=== PATIENT | female | born 1960 | race Caucasian/White ===

== ENCOUNTER 2017-03-19 15:18 | Emergency (ER) | payer MEDICARE, OTHER ==
[~2017-03-19] VITALS: Ht 160 cm; Wt 74.8 kg
--- NOTE | 2017-03-19 16:41 | RADIOLOGY REPORT PS360 ---
WRIST-3 VIEWS-RT HISTORY: Pain following injury. Pain and swelling DOG BITE ORDERING PHYSICIAN: Naman Brown MD PATIENT AGE: 56 years COMPARISON: None FINDINGS: No fracture or dislocation. No lytic or blastic change. There is normal mineralization.. The joint spaces are well-preserved. No significant degenerative/arthritic changes. No erosive changes evident.. No radio opaque foreign body. There is a small amount soft tissue gas along the distal forearm and wrist anteriorly and posteriorly. Soft tissue swelling also noted. IMPRESSION: 1. Soft tissue swelling with soft tissue gas. 2. No fracture or radiopaque foreign body
--- NOTE | 2017-03-19 16:42 | RADIOLOGY REPORT PS360 ---
FOREARM-RT HISTORY: Pain and swelling, laceration DOG BITE ORDERING PHYSICIAN: Naman Brown MD PATIENT AGE: 56 years COMPARISON: None FINDINGS: No obvious fracture, dislocation, lytic change or blastic change. Normal mineralization. Unremarkable soft tissues. There is laceration of the dorsal aspect of the wrist with a small amount soft tissue gas both anteriorly and posteriorly. No radio opaque foreign body. IMPRESSION: 1. Dorsal distal forearm laceration with soft tissue gas. 2. No fracture or radiopaque foreign body
[2017-03-19] MEDS ORDERED: CLINDAMYCIN HC300 MG PO (17:19)
[2017-03-19] MEDS ORDERED: AUGMENTIN 875-1 EACH PO (17:19)
--- NOTE | 2017-03-19 17:20 | Emergency Room Report ---
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 N Clinical Suspician of Infection? N Mental Status: 1 - Regular (Normal Baseline) Sepsis Risk:Low Sepsis Risk Have you (or family members/close friends) recently traveled outside the [place]? N If Yes, where/when: Have you had exposure to infectious disease within the past month? TB? Other? 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 Patient advised that she tried to break up a fight between 2 bull dogs and one of them bit her on the RIGHT wrist and RIGHT forearm. Patient denies any other injuries at this time. ALLERGIES Coded Allergies: codeine (Mild, 03/19/17) History Medical History General CAD? No Angina: No Hypertension? No Hyperlipidemia? Yes CHF? No DVT? No PE? No COPD? No Asthma? No Anemia? No GERD? Yes Gastric ulcers? No GI Bleed? No Hernia? Yes Thyroid Problems? No Hypothyroidism? No CVA? No Seizures? No Diabetes? No Renal Insuffiency? No End Stage Renal Disease? No UTI? No Hepatitis? No Sickle Cell Disease? No Arthritis? Yes Migraines? Yes Cataracts? No Glaucoma? No MRSA? No HIV? No TB? No Anxiety? No Depression? No Cancer? Yes Site: MELANOMA More? Yes Additional hx: BENIGN RENAL KIDNEY MASS-LEFT Immunization Hx Ped.Immunizations UTD Yes DT/Tetanus Unknown Surgical Hx Previous Surgery?Y C4,5,6,7 VERTEBRAES LT. 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 Social History Smoking Hx Smoker: Former Smoker Tobacco: No Type N/A Are you/the child exposed to second-hand smoke: No Review of Systems All Other Systems Reviewed and Negative Musculoskeletal see HPI, joint pain (RIGHT forearm, RIGHT wrist) Skin lesions (RIGHT forearm, RIGHT wrist) Physical Exam Vital Signs Vital Signs Date Time Temp Pulse Resp B/P Pulse O2 O2 Flow FiO2 Ox Delivery Rate 03/19 1825 98.3 66 18 130/80 99 03/19 1647 66 18 130/80 99 03/19 1530 98.3 66 18 138/74 98 General Appearance normal appearance, WD/WN, moderate distress, very anxious Respiratory Status Yes: trachea midline, chest symmetrical, non tender chest. No: respiratory distress. Lung Sounds bilateral: normal breath sounds, lungs clear. Cardiovascular normal exam, regular rate/rhythm, no peripheral edema, no gallop, no JVD, no murmur, no rub, normal peripheral pulses Gastrointestinal normal bowel sounds, normal exam, non tender, soft, no organomegaly Extremities normal range of motion, the patient has 3 posterior distal RIGHT forearm lacerations, 1st - 6cm 2nd - 4cm 3rd - 3cm and other 3 on the volar aspect of the right forearm, 4th - 3cm 5th - 2cm 6th - 2cm all subcutaneous, no FB seen. Wounds washed off vigurously with 1,000ml of saline. 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 Yes Brent was queried for this patient? No Reason not queried - hospital network issues Risks/benefits of using a controlled substance for treatment were discussed w/pt by me Comment Patient tolerated procedure well, plan is have her follow-up with PCP within 2 days. In the meanwhile she will change her dressing daily, keep wounds clean and dry, watch carefully for signs of possible local infection. I have applied a splint for patient's comfort in order to avoid additional pain. I have discussed with patient the possibility of a secondary infection at length. Patient understands that this is a likelihood, advised to watch carefully for signs of possible infection and to return promptly here for reevaluation. Results/Orders Laboratory Tests 03/19/17 1545: POC Glucose 110 Current Medication Orders Sig/Irais Start time Last Medication Dose Route Stop Time Status Admin Lidocaine HCl 0 .STK-MED ONE 03/19 1716 DC .ROUTE Orders Procedure Date/time Status FINGERSTICK BLOOD SUGAR 03/19 1545 Complete Procedures Laceration/Wound Repair Laceration/Wound Repair Risks/benefits discussed with pt/guardian? Yes Tetanus status up to date Wound Location right forearm Wound Length (cm) 20 Wound's Depth, Shape sucutaneous tissue Wound Explored no FB identified Risk of retained FB explained to pt/guardian? Yes Irrigated w/ Saline (ccs) 1000 (ml of saline) Wound Prep Betadine, Saline Anesthesia 1% Lidocaine, Local Volume Anesthetic (ccs) 40 Wound Debrided none Wound Repaired With sutures Suture Size/Type 5:0, Ethilon Total Number Sutures 35 Sterile Dressing Applied Yes Splint Applied Yes Type of Splint Applied short arm, volar, orthoglass (see note) Orthopedic/Inj/Splint Ortho Proc/Injections/Splints Risks/benefits discussed with pt/guardian? Yes Location right forearm Hand-Made Type orthoglass Splint volar Pre-Proc Neuro Vasc Exam normal Post-Proc Neuro Vasc Exam normal Complications no immediate complications Departure Departure Time of Disposition 1718 Disposition DC Home or Self Care(routine) Clinical Impression Primary Impression: Dog bite of right forearm without complication Qualifiers: Encounter type: initial encounter Qualified Code: S51.851A - Open bite of right forearm, initial encounter Condition STABLE Referrals Kat MARTINEZ,Arnav Rubin: 2 Days-Call Office if not better Patient Instructions DI for Dog Bite Additional Instructions Please keep wound clean and dry, change dressing daily, watch carefully for signs of possible local infection, follow-up with PCP (of your choice) or return to the ER if any worse. Please take the 2 antibiotics as instructed, prescriptions the past. Suture removal in 8-10 days if no complications. Discharge Counseling Counseled pt/family regarding diagnosis, test results, medications/RX, home care, follow up needs Comment Please keep wound clean and dry, change dressing daily, watch carefully for signs of possible local infection, follow-up with PCP (of your choice) or return to the ER if any worse. Please take the 2 antibiotics as instructed, prescriptions the past. Suture removal in 8-10 days if no complications. Prescriptions Current Visit Scripts Amoxicillin/Potassium Clav (Augmentin 875-125 Tablet) 1 EACH PO BID #20 TAB Clindamycin Hcl (Clindamycin 300MG) 300 MG PO QID #28 CAP Tramadol Hcl (Ultram 50MG) 50 MG PO QIDP PRN pain #12 TAB ED Critical Care Critical Care No at 1700
--- NOTE | 2017-03-19 17:20 | Emergency Room Report ---
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 N Clinical Suspician of Infection? N Mental Status: 1 - Regular (Normal Baseline) Sepsis Risk:Low Sepsis Risk Have you (or family members/close friends) recently traveled outside the [place]? N If Yes, where/when: Have you had exposure to infectious disease within the past month? TB? Other? 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 Patient advised that she tried to break up a fight between 2 bull dogs and one of them bit her on the RIGHT wrist and RIGHT forearm. Patient denies any other injuries at this time. ALLERGIES Coded Allergies: codeine (Mild, 03/19/17) History Medical History General CAD? No Angina: No Hypertension? No Hyperlipidemia? Yes CHF? No DVT? No PE? No COPD? No Asthma? No Anemia? No GERD? Yes Gastric ulcers? No GI Bleed? No Hernia? Yes Thyroid Problems? No Hypothyroidism? No CVA? No Seizures? No Diabetes? No Renal Insuffiency? No End Stage Renal Disease? No UTI? No Hepatitis? No Sickle Cell Disease? No Arthritis? Yes Migraines? Yes Cataracts? No Glaucoma? No MRSA? No HIV? No TB? No Anxiety? No Depression? No Cancer? Yes Site: MELANOMA More? Yes Additional hx: BENIGN RENAL KIDNEY MASS-LEFT Immunization Hx Ped.Immunizations UTD Yes DT/Tetanus Unknown Surgical Hx Previous Surgery?Y C4,5,6,7 VERTEBRAES LT. 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 Social History Smoking Hx Smoker: Former Smoker Tobacco: No Type N/A Are you/the child exposed to second-hand smoke: No Review of Systems All Other Systems Reviewed and Negative Musculoskeletal see HPI, joint pain (RIGHT forearm, RIGHT wrist) Skin lesions (RIGHT forearm, RIGHT wrist) Physical Exam Vital Signs Vital Signs Date Time Temp Pulse Resp B/P Pulse O2 O2 Flow FiO2 Ox Delivery Rate 03/19 1825 98.3 66 18 130/80 99 03/19 1647 66 18 130/80 99 03/19 1530 98.3 66 18 138/74 98 General Appearance normal appearance, WD/WN, moderate distress, very anxious Respiratory Status Yes: trachea midline, chest symmetrical, non tender chest. No: respiratory distress. Lung Sounds bilateral: normal breath sounds, lungs clear. Cardiovascular normal exam, regular rate/rhythm, no peripheral edema, no gallop, no JVD, no murmur, no rub, normal peripheral pulses Gastrointestinal normal bowel sounds, normal exam, non tender, soft, no organomegaly Extremities normal range of motion, the patient has 3 posterior distal RIGHT forearm lacerations, 1st - 6cm 2nd - 4cm 3rd - 3cm and other 3 on the volar aspect of the right forearm, 4th - 3cm 5th - 2cm 6th - 2cm all subcutaneous, no FB seen. Wounds washed off vigurously with 1,000ml of saline. 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 Yes Brent was queried for this patient? No Reason not queried - hospital network issues Risks/benefits of using a controlled substance for treatment were discussed w/pt by me Comment Patient tolerated procedure well, plan is have her follow-up with PCP within 2 days. In the meanwhile she will change her dressing daily, keep wounds clean and dry, watch carefully for signs of possible local infection. I have applied a splint for patient's comfort in order to avoid additional pain. I have discussed with patient the possibility of a secondary infection at length. Patient understands that this is a likelihood, advised to watch carefully for signs of possible infection and to return promptly here for reevaluation. Results/Orders Laboratory Tests 03/19/17 1545: POC Glucose 110 Current Medication Orders Sig/Irais Start time Last Medication Dose Route Stop Time Status Admin Lidocaine HCl 0 .STK-MED ONE 03/19 1716 DC .ROUTE Orders Procedure Date/time Status FINGERSTICK BLOOD SUGAR 03/19 1545 Complete Procedures Laceration/Wound Repair Laceration/Wound Repair Risks/benefits discussed with pt/guardian? Yes Tetanus status up to date Wound Location right forearm Wound Length (cm) 20 Wound's Depth, Shape sucutaneous tissue Wound Explored no FB identified Risk of retained FB explained to pt/guardian? Yes Irrigated w/ Saline (ccs) 1000 (ml of saline) Wound Prep Betadine, Saline Anesthesia 1% Lidocaine, Local Volume Anesthetic (ccs) 40 Wound Debrided none Wound Repaired With sutures Suture Size/Type 5:0, Ethilon Total Number Sutures 35 Sterile Dressing Applied Yes Splint Applied Yes Type of Splint Applied short arm, volar, orthoglass (see note) Orthopedic/Inj/Splint Ortho Proc/Injections/Splints Risks/benefits discussed with pt/guardian? Yes Location right forearm Hand-Made Type orthoglass Splint volar Pre-Proc Neuro Vasc Exam normal Post-Proc Neuro Vasc Exam normal Complications no immediate complications Departure Departure Time of Disposition 1718 Disposition DC Home or Self Care(routine) Clinical Impression Primary Impression: Dog bite of right forearm without complication Qualifiers: Encounter type: initial encounter Qualified Code: S51.851A - Open bite of right forearm, initial encounter Condition STABLE Referrals Kat MARTINEZ,Arnav Rubin: 2 Days-Call Office if not better Patient Instructions DI for Dog Bite Additional Instructions Please keep wound clean and dry, change dressing daily, watch carefully for signs of possible local infection, follow-up with PCP (of your choice) or return to the ER if any worse. Please take the 2 antibiotics as instructed, prescriptions the past. Suture removal in 8-10 days if no complications. Discharge Counseling Counseled pt/family regarding diagnosis, test results, medications/RX, home care, follow up needs Comment Please keep wound clean and dry, change dressing daily, watch carefully for signs of possible local infection, follow-up with PCP (of your choice) or return to the ER if any worse. Please take the 2 antibiotics as instructed, prescriptions the past. Suture removal in 8-10 days if no complications. Prescriptions Current Visit Scripts Amoxicillin/Potassium Clav (Augmentin 875-125 Tablet) 1 EACH PO BID #20 TAB Clindamycin Hcl (Clindamycin 300MG) 300 MG PO QID #28 CAP Tramadol Hcl (Ultram 50MG) 50 MG PO QIDP PRN pain #12 TAB ED Critical Care Critical Care No at 1700
[2017-03-19] MEDS ORDERED: ULTRAM50 MG PO (17:24)
[2017-03-19 18:25] VITALS: BP 130/80
== END 2017-03-19 18:52 | disposition home or self-care (01) ==
LOC: ER 15:18
PROC: 0HQDXZZ Repair Right Lower Arm Skin, External Approach (ICD-10-PCS; principal; 2017-03-19)
PROC: 2W3CX1Z Immobilization of Right Lower Arm using Splint (ICD-10-PCS; principal; 2017-03-19)
DX: S51.851A Open bite of right forearm, initial encounter (principal); Z23 Encounter for immunization; Z87.891 Personal history of nicotine dependence; S60.871A Other superficial bite of right wrist, initial encounter; W54.0XXA Bitten by dog, initial encounter; Y92.89 Other specified places as the place of occurrence of the external cause